=== PATIENT | male | born 1965 | race Caucasian/White ===

== ENCOUNTER 2019-03-11 11:22 | Inpatient (IN) | payer MEDICARE ==
[~2019-03-11] VITALS: Ht 175.3 cm; Wt 127.0 kg
[2019-03-11 11:43] VITALS: BP 139/99
[2019-03-11 12:42] LABS: URINE BLOOD TRACE (Negative); URINE CLARITY CLEAR; URINE COLOR DARK YELLOW; URINE GLUCOSE-RANDOM NEGATIVE (Negative); URINE KETONES TRACE (Negative); URINE LEUKOCYTES-REFLEX NEGATIVE (Negative); URINE NITRITE-REFLEX NEGATIVE (Negative); URINE PROTEIN 2+ (Negative); URINE SPECIFIC GRAVITY >= 1.030 (1.005-1.030)
[2019-03-11 12:43] LABS: URINE BILIRUBIN 2+ (Negative)
[2019-03-11 12:44] LABS: ICTOTEST (BILI CONFIRMATORY) Positive (Negative)
[2019-03-11 12:53] LABS: ABSOLUTE BASOPHILS 0.1 thou/uL (0.0-0.2); ABSOLUTE EOSINOPHILS 0.1 thou/uL (0.0-0.7); ABSOLUTE LYMPHOCYTES 1.3 thou/uL (0.8-5.3); ABSOLUTE NEUTROPHILS 8.2 thou/uL (1.6-8.1); EOSINOPHILS 1.2 %; HEMATOCRIT 39.6 % (42.0-52.0); HEMOGLOBIN 13.1 gm/dL (14.0-18.0); LYMPHOCYTES 11.8 %; MCH 29.1 pg (26.0-34.0); MCHC 33.1 g/dL (28.0-37.0); MPV 8.2 fl. (7.2-11.1); NUCLEATED RBCS 0 /100WBC; PLATELET COUNT* 287 thou/uL (150-400); RDW-CV 16.1 % (10.5-14.5); WBC 10.6 thou/uL (4.0-11.0)
[2019-03-11 12:56] LABS: SQUAMOUS 0-3 Few /LPF (0-3); URINE RBC 0-2 Rare /HPF (0-2); URINE WBC-REFLEX 0-5 Rare /HPF (0-5)
[2019-03-11 12:57] LABS: BACTERIA-REFLEX None Seen /HPF (None Seen); HYALINE CASTS >10 Many /LPF (None Seen); MUCUS 0-3 Light strn/LPF (None Seen)
[2019-03-11 12:58] LABS: CRYSTALS None Seen /LPF (None Seen)
[2019-03-11 13:07] LABS: CALCIUM 8.9 mg/dL (8.5-10.1); CREATININE 1.7 mg/dL (0.6-1.3); POTASSIUM 3.4 mmol/L (3.5-5.1)
[2019-03-11 13:12] LABS: ALBUMIN 2.9 g/dL (3.4-5.0); TOTAL BILIRUBIN 1.1 mg/dL (<0.1-1.0); TOTAL PROTEIN 6.5 g/dL (6.4-8.2)
--- NOTE | 2019-03-11 13:31 | NUR ---
CAESAR NOTIFIED UPON PT RETURN FROM CT. PT WAS NOT CONNECTED TO MONITOR HE WAS NOT CONNECTED PRIOR TO CT
[2019-03-11 15:39] VITALS: BP 145/87
[2019-03-11 16:03] VITALS: BP 140/91
--- NOTE | 2019-03-11 18:55 | NUR ---
PATIENT ARRIVED TO UNIT AT APPROX 1600. ALERT AND ORIENTED X4. ADMISSION HISTORY AND ASSESSMENT COMPLETED AND CHAFRTED. VSS ON ROOM AIR. MINIMAL COMPLAINT OF PAIN, NO PAIN MEDS REQUIRED. PATIENT IS UP AD ANDRA. PATIENT HAD REDNESS NOTED TO SKIN, OVERALL. REDNESS AND EDEMA NOTED TO BILAT LOWER EXTREMITITES. COMPLAINT OF CONSTIPATION ADDRESSED WITH MIRALAX AND MILK OF MAG. NO OTHER COMPLAINTS. CALL LIGHT WITHIN REACH. HOURLY ROUNDS COMPLETED. WILL CONTINUE TO MONITOR.
[2019-03-11 20:00] VITALS: BP 137/81
[2019-03-11 22:06] LABS: AMP/METHAMP POSITIVE (Negative); BARBITURATES Negative (Negative); BENZODIAZEPINES Negative (Negative); COCAINE Negative (Negative); METHADONE Negative (Negative); OPIATES Negative (Negative); PCP Negative (Negative); THC POSITIVE (Negative)
[2019-03-12 04:38] LABS: HEMATOCRIT 39.2 % (42.0-52.0); HEMOGLOBIN 13.1 gm/dL (14.0-18.0); MCH 29.5 pg (26.0-34.0); MCHC 33.4 g/dL (28.0-37.0); MCV 88.2 fL (80.0-100.0); RBC 4.45 mil/uL (4.50-6.00); WBC 9.9 thou/uL (4.0-11.0)
[2019-03-12 04:57] LABS: ALBUMIN 2.9 g/dL (3.4-5.0); CALCIUM 8.4 mg/dL (8.5-10.1); CREATININE 1.5 mg/dL (0.6-1.3); MAGNESIUM 1.9 mg/dL (1.8-2.4); TOTAL BILIRUBIN 1.2 mg/dL (<0.1-1.0); TOTAL PROTEIN 6.5 g/dL (6.4-8.2)
[2019-03-12 09:07] VITALS: BP 143/82
--- NOTE | 2019-03-12 13:49 | NUR ---
CM ATTEMPT ASSESSMENT. PT WAS ASLEEP. CM TO F/U.
[2019-03-12 16:11] LABS: HEPATITIS B SURFACE AG Negative (Negative)
--- NOTE | 2019-03-12 17:15 | NUR ---
PT A&OX4 VSS. PT HAS PO TRAMADOL TO ADDRESS C/O ABD PAIN. TYLENOL ORDERS DC'D PER DR PHIPPS. ADMINISTERED MIRALAX AND MAG CITRATE THIS SHIFT TO ADDRESS C/O CONSTIPATION. PT HAS IV TO L HAND SALINE LOCKED. PT UP AD ANDRA, GAIT STEADY. EDEMA BLE PRESENT AT START OF SHIFT. PT RESTS IN ROOM WITH CALL LIGHT IN REACH. WILL CONTINUE TO MONITOR.
[2019-03-12 19:45] VITALS: BP 143/92
[2019-03-12 19:46] LABS: INR 1.3; PROTIME 13.4 Seconds (9.20-11.50)
[2019-03-13 07:50] VITALS: BP 123/93
[2019-03-13 11:10] VITALS: BP 123/93
[2019-03-13 14:07] LABS: IgA 183 mg/dL (90-386); IgG 1149 mg/dL (700-1600); IgM 66 mg/dL (20-172)
[2019-03-13 16:00] VITALS: BP 125/96
--- NOTE | 2019-03-13 18:22 | NUR ---
PATIENT RESTING IN BED. PATIENT HAS COMPLAINTS OF ABDOMINAL PAIN, TREATED ADEQUATELY WITH TRAMADOL. PATIENT HR TACHY AND IRREGULAR THIS EVENING. EKG SHOWS AFIB, DR MCKEON NOTIFIED AND ORDERS RECEIVED. PATIENT IS UP AD ANDRA IN ROOM. PATIENT DENIES ANY NEEDS AT THIS TIME. CALL LIGHT WITHIN REACH. WILL CONTINUE TO MONITOR.
[2019-03-14] VITALS: BP 129/75
[2019-03-14 04:00] VITALS: BP 121/86
--- NOTE | 2019-03-14 05:50 | NUR ---
PATIENT HAS SLEPT WELL THROUGHOUT MOST OF THE NIGHT. VSS ON RA, ALTHOUGH PULSE VERY SPORADIC AND GOING UP AND DOWN. PULSE VERY TACHY. PATIENT ALSO HAS C/O OF BEING DIZZINESS AT TIMES. NO C/O CHEST PAIN. EKG DONE AND SHOWED A-FIB WITH BBB. DR. MCKEON NOTIFIED VIA YOU CALL MD. NO NEW ORDERS. MEDICATIONS GIVEN ORDERED AND CHARTED. PATIENT HAS NOT REQUESTED ANY PAIN MEDICATIONS. PATIENT HAS REMAINED NPO SINCE MIDNIGHT D/T ABDOMINAL ULTRASOUND THIS AM. IV IN LEFT HAND-BANANA BAG RUNNING AT 80ML/HR. PATIENT INSTRUCTED TO USE CALL LIGHT WHEN NEEDING ASSISTANCE. HOURLY ROUNDS MADE. WILL CONTINUE WITH PLAN OF CARE AND NURSING TO MONITOR.
[2019-03-14 08:20] VITALS: BP 134/91
[2019-03-14] MEDS ORDERED: LEVO-T25 MCG PO (12:13)
[2019-03-14 12:43] VITALS: BP 123/93
[2019-03-14 13:28] VITALS: BP 123/93
--- NOTE | 2019-03-15 08:39 | EKG ---
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
[2019-03-15 11:08] LABS: CERULOPLASMIN 47.3 mg/dL (16.0-31.0)
--- NOTE | 2019-03-15 14:34 | EKG ---
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 : 1965 Requested By: Flora Young Order Number: [id number] Denis MD: Agustín Osullivan Measurements Intervals [place] Rate: 98 P: [place]: QRS: -24 QRSD: 139 T: 152 QT: 389 QTc: 497 Interpretive Statements Atrial fibrillation Left bundle branch block Compared to ECG 03/13/2019 18:02:55 No significant changes Electronically Signed On 03-15-2019 14:34:24 VEHICLE CALIBRATION ENGINEER by Agustín Osullivan [email or web address] <ELECTRONICALLY SIGNED> By: Agustín Osullivan MD, [facility] 03/15/19 1434 51 51 Agustín Osullivan MD, FAC /EPI
--- NOTE | 2019-03-15 16:20 | CON ---
[address] [address] CONSULTATION Name: DIMAS SANCHEZ Room: [address] IN M.R.#: [id number] Admission: 03/12/19 Attend Phys: Brissa Young MD Discharge: 03/14/19 Date of : 65 Report #: [id number] THIS REPORT FOR: //name// CC: [facility] physician/PCP Brissa Young DICTATED BY: Iris Vazquez [facility] DATE OF SERVICE: 03/12/2019 The patient does not have a PCP. Please note at the time of this dictation, the patient was seen and physically examined by myself. REASON FOR CONSULTATION: Transaminitis. HISTORY OF PRESENT ILLNESS: This is a 53-year-old male who states that he had been having generalized abdominal pain after lifting his cousin who was greater than 300 pounds, who fell to the floor and then recently from that. He has a history of hernia repair with mesh that he states that he has been having problems with and it has gotten worse after he lifted his cousin. He has had increased discomfort with all this. He normally goes to the bathroom on a daily basis, soft and formed; however, for the last 4 days, he has been unable to go and causing more discomfort, especially on the left side. He has had a little bit of nausea, but no vomiting at this time. He generally complains of generalized abdominal discomfort and nothing specific. The patient states he has never had an upper scope. He did have a colonoscopy when he had similar pain several years ago down at [facility] in [place], [place], we will attempt to obtain those records for further evaluation. The patient states he has a remote history many years ago where he drank a 12-pack daily for many years as well as doing marijuana, IV drug use and other illegal substances at that time. He did do a stint in penitentiary and prison for a little while and has now relocated to [place]. He did not give me a timeframe of when he was in prison and penitentiary or when he got out. He did have tattoos that were noted from a reputable tattoo parlor, but also he did have some penitentiary tats as well. He denies any blood transfusions. He does state that when he was in penitentiary, they did do HIV and acute hepatitis panel and those were negative that he recalls. ALLERGIES: No known drug allergies. MEDICATIONS FROM HOME: None. PAST MEDICAL HISTORY: He does have cardiomyopathy, which he was told about 20 years ago and has never been told that [place] [address] CONSULTATION Name: DIMAS SANCHEZ Room: [address] IN M.R.#: [id number] Admission: 03/12/19 Attend Phys: Brissa Young MD Discharge: 03/14/19 Date of : 65 Report #: [id number] PAST SURGICAL HISTORY: Hernia repair. FAMILY HISTORY: Mother had cancer of the larynx otherwise negative other GI and female cancers. SOCIAL HISTORY: He lives with his significant other and he did care for his cousin in the home up until his recent passing. Lives with prince, former smoker, quit a month ago, recently did smoke a joint that he felt that it was laced with something that he is unaware of and he did have drinks here recently upon his cousin's passing, but remote history many years ago of heavy alcohol and drug use. REVIEW OF SYSTEMS: A 12-point review of systems is essentially negative except what is mentioned in the HPI. PHYSICAL EXAMINATION: VITAL SIGNS: Temperature 36.7, pulse 103, respirations 16, blood pressure 137/81. HEART: Regular rate and rhythm. LUNGS: Diminished, but clear. He does have a little bit of some lower extremity edema. ABDOMEN: Soft, positive bowel sounds in all 4 quadrants with generalized tenderness noted throughout. LABORATORY DATA: Hemoglobin is 13.1, white count is 9.9, platelet is 277. GFR is 49. Lipase was 147 on admission, total bilirubin 1.1 on admission, he is now 1.2, alkaline phosphatase was 130, he is 131, ALT was 218, he is 261 and AST was 125 and now is 112. No PT/INR was done, we will obtain, positive for THC and positive for meth. CT showed small amount of ascites around the liver, soft tissue connection reminisces between the umbilicus and anterior dorsal portion of the bladder and a nonobstructive right renal calculus in the lower pole. IMPRESSION: 1. Transaminitis. 2. Fatty liver disease. 3. Abdominal pain, generalized. 4. Abnormal CT. 5. Constipation. 6. History of alcohol and drug abuse years ago. PLAN: 1. Ultrasound of the abdomen. 2. Labs, alpha-1 antitrypsin, AFP, IBAN, ASMA, AMA, ceruloplasmin, quantitative immunoglobulins, IgG, IgA and IgM. PT/INR. 3. We will get the patient on a better bowel regimen while here. [address] [address] CONSULTATION Name: DIMAS SANCHEZ Room: [address] IN M.R.#: [id number] Admission: 03/12/19 Attend Phys: Brissa Young MD Discharge: 03/14/19 Date of : 65 Report #: [id number]. Further recommendations to be made once Dr. Paul sees the patient later today. Thank you for allowing us to participate in this patient's care. Please do not hesitate to call with any questions in regard to this consult. Agree with above assessment and plan by Iris Vazquez <ELECTRONICALLY SIGNED> By: Kashmir Paul MD 03/15/19 1620 1011 [id number] Paul MD /nt
[2019-03-22 10:11] LABS: ANA INTERPRETATION Negative (Negative)
== END 2019-03-14 13:28 | disposition home or self-care (01) | DRG 442 ==
LOC: M.ERS 11:22 → M.TBA-ER 14:13 → M.ORTHSURG 14:13
PROVIDERS: Nurse Practitioner Adult Health; Nurse Practitioner Psychiatric/Mental Health; ADMIT Internal Medicine
DX: B17.9 Acute viral hepatitis, unspecified (principal); N17.9 Acute kidney failure, unspecified; I42.9 Cardiomyopathy, unspecified; Z68.41 Body mass index [BMI] 40.0-44.9, adult; K29.70 Gastritis, unspecified, without bleeding; E87.6 Hypokalemia; R74.0 Nonspecific elevation of levels of transaminase and lactic acid dehydrogenase [LDH]; K59.00 Constipation, unspecified; K76.0 Fatty (change of) liver, not elsewhere classified; N20.0 Calculus of kidney; N18.3 Chronic kidney disease, stage 3 (moderate); E66.01 Morbid (severe) obesity due to excess calories; B19.20 Unspecified viral hepatitis C without hepatic coma; N28.1 Cyst of kidney, acquired; Z87.891 Personal history of nicotine dependence